=== PATIENT | female | born 1990 | race Caucasian/White ===

== ENCOUNTER 2016-09-14 09:12 | Emergency (ER) | payer BC ==
[2016-09-14 10:14] VITALS: BP 107/83
--- NOTE | 2016-09-14 10:40 | UC ---
Ear Complaint HPI - HPI Summary HPI Summary: blocked ears x 1 month no ear pain, no cold sx, no ear discharge - History of Current Complaint Chief Complaint: UCEar Stated Complaint: EAR Time Seen by Provider: 09/14/16 09:35 Hx Obtained From: Patient Hx Last Menstrual Period: 08/18/16 ?: No Onset/Duration: Gradual Onset, Lasting Weeks - 4, Still Present Severity Initially: Moderate Severity Currently: Moderate Pain Intensity: 0 Pain Scale Used: 0-10 Numeric Aggravating Factors: Nothing Alleviating Factors: Nothing Associated Signs/Symptoms: Positive: Hearing Loss. Negative: Discharge, Foreign Body Sensation, Trauma to Ear, Swelling @, URI Symptoms - Allergies/Home Medications Allergies/Adverse Reactions: Allergies Allergy/AdvReac Type Severity Reaction Status Date / Time No Known Allergies Allergy Verified 09/14/16 09:30 Home Medications: Home Medications NK [No Home Medications Reported] 09/14/16 [History Confirmed 09/14/16] PMH/Surg Hx/FS Hx/Imm Hx Endocrine History Of: Denies: Diabetes Cardiovascular History Of: Denies: Cardiac Disorders Respiratory History Of: Denies: Asthma - Surgical History Surgical History: Yes Surgery Procedure, Year, and Place: Right knee surgery - Family History Known Family History: Negative: Diabetes - Social History Alcohol Use: Occasionally Substance Use Type: None Smoking Status (MU): Never Smoked Tobacco Review of Systems Constitutional: Negative Skin: Negative Eyes: Negative ENT: Negative Respiratory: Negative Cardiovascular: Negative Gastrointestinal: Negative Genitourinary: Negative Motor: Negative Neurovascular: Negative Musculoskeletal: Negative Neurological: Negative Psychological: Negative All Other Systems Reviewed And Are Negative: Yes Physical Exam Triage Information Reviewed: Yes Appearance: Well-Appearing, No Pain Distress, Well-Nourished Vital Signs: Initial Vital Signs Temp 98.1 F 09/14/16 09:31 Pulse 67 09/14/16 09:31 Resp 16 09/14/16 09:31 BP 107/83 09/14/16 09:31 Pulse Ox 100 09/14/16 09:31 Vital Signs Reviewed: Yes Eyes: Positive: Conjunctiva Clear ENT: Positive: Normal ENT inspection, Hearing grossly normal, Pharynx normal, TMs normal, Other: - bilateral cerumen impaction Neck exam: Normal Neck: Positive: Supple, Nontender, No Lymphadenopathy Respiratory Exam: Normal Respiratory: Positive: Chest non-tender, Lungs clear, Normal breath sounds Cardiovascular Exam: Normal Cardiovascular: Positive: RRR, No Murmur, Pulses Normal Skin Exam: Normal Ear Complaint Course/Dx - Course Course Of Treatment: cerumen was removed using ear irrigation - Differential Dx/Diagnosis Provider Diagnoses: cerumen impaction Discharge - Discharge Plan Condition: Stable Disposition: HOME Patient Education Materials: Cerumen Impaction (ED) Referrals: No Primary Care Phys,NOPCP [Medical Doctor] - If Needed
== END 2016-09-14 10:18 | disposition home or self-care (01) ==
LOC: UCCORT 09:12
DX: H61.23 Impacted cerumen, bilateral (principal)
CPT/HCPCS: 99203; G0463